=== PATIENT | female | born 1960 | race Caucasian/White ===

== ENCOUNTER 2017-01-04 07:50 | Day surgery (SDC) | payer OTHER ==
[~2017-01-04] VITALS: Ht 160 cm; Wt 58.5 kg
[~2017-01-04 07:50] MED LIST: ACET325T26 PO; ADVIL PO; ASCO-96 PO; ATOR40TA78 PO; BUPIVACAINE/PF 0.5% ONE; CALC-112 PO; HEPARIN 1,000 UNITS/ML, 10ML ONE; HYDR-3138 PO; IBUP200C PO; L GA1CAP PO; LACT1CAP35 PO; LORA0.5T PO; LORA10CA PO; MELA1TAB6 PO; MULT-717 PO; ONDA4TAB10 PO; ONDA4TAB13 SL; PANT40TA5 PO; PROTAMINE SULFATE 10 MG/ML, 5ML ONE; SUDAFED PO; THROMBIN 5,000 UNIT VIAL TP ONE; TYLENOL PO; UBID100C24 PO
[2017-01-04] MEDS ORDERED: SODIUM CHLORIDE 0.9% 1,000 ML IV SCH (09:22)
[2017-01-04 09:42] VITALS: BP 138/76
[2017-01-04] MEDS ORDERED: PANT40TA5 PO (09:53)
[2017-01-04] MEDS ORDERED: ACYC-114 PO (09:53)
[2017-01-04] MEDS ORDERED: FENTANYL PF 250 MCG/5ML ONE (10:18)
[2017-01-04] MEDS ORDERED: MIDAZOLAM 1 MG/ML, 2ML ONE (10:18)
[2017-01-04] MEDS ORDERED: PROPOFOL 10 MG/ML, 20ML ONE (10:49)
[2017-01-04] MEDS ORDERED: DEXAMETHASONE 4 MG/ML, 1ML ONE (10:49)
[2017-01-04] MEDS ORDERED: CEFAZOLIN 1,000 MG ONE (10:49)
[2017-01-04] MEDS ORDERED: ONDANSETRON 2MG/ML, 2ML ONE (10:49)
[2017-01-04] MEDS ORDERED: ONDANSETRON 2MG/ML, 2ML IVPush PRN (11:30)
[2017-01-04] MEDS ORDERED: hydrALAzine 20 MG/ML, 1ML IV PRN (11:30)
[2017-01-04] MEDS ORDERED: LABETALOL 5MG/ML, 20ML IV PRN (11:30)
[2017-01-04] MEDS ORDERED: EPHEDRINE 50 MG/ML, 1ML IVPush PRN (11:30)
[2017-01-04] MEDS ORDERED: HYDROmorphone 1 MG/ML, 1ML IV PRN (11:30)
[2017-01-04] MEDS ORDERED: METOPROLOL 1 MG/ML, 5ML IV PRN (11:30)
[2017-01-04] MEDS ORDERED: ALBUTEROL SULFATE 2.5 MG/3 ML NPPB PRN (11:30)
[2017-01-04] MEDS ORDERED: OXYcodone 5 MG/5 ML ORAL.SOL UDC PO PRN (11:30)
[2017-01-04] MEDS ORDERED: ACETAMINOPHEN 325 MG TABLET PO PRN (11:30)
[2017-01-04] MEDS ORDERED: FENTANYL PF 100 MCG/2ML IV PRN (11:30)
[2017-01-04] MEDS ORDERED: ACETAMINOPHEN 650 MG/20.3 ML UDC ONE (12:10)
[2017-01-04] MEDS ORDERED: OXYcodone 5 MG/5 ML ORAL.SOL UDC ONE (12:11)
== END 2017-01-04 15:30 | disposition home or self-care (01) ==
LOC: OUT 07:50
PROVIDERS: ATTEND Surgery Vascular Surgery
DX: N18.6 End stage renal disease (principal); K21.9 Gastro-esophageal reflux disease without esophagitis; Z85.79 Personal history of other malignant neoplasms of lymphoid, hematopoietic and related tissues; Z99.2 Dependence on renal dialysis; E78.00 Pure hypercholesterolemia, unspecified; Z72.89 Other problems related to lifestyle; D64.9 Anemia, unspecified; Z90.710 Acquired absence of both cervix and uterus
CPT/HCPCS: 36415; 36821; 80047; J0690; J1100; J1644; J2250; J2405; J2704; J2720; J3010; J3490; J7030

== ENCOUNTER 2017-04-08 15:52 | Emergency (ER) | payer OTHER ==
[~2017-04-08] VITALS: Ht 160 cm; Wt 59.6 kg
[~2017-04-08 15:52] MED LIST changes: +ACYC-114 PO; -BUPIVACAINE/PF 0.5% ONE; -HEPARIN 1,000 UNITS/ML, 10ML ONE; -PROTAMINE SULFATE 10 MG/ML, 5ML ONE; -THROMBIN 5,000 UNIT VIAL TP ONE
[2017-04-08] MEDS ORDERED: MIDAZOLAM 1 MG/ML, 5ML ONE (16:04)
[2017-04-08] MEDS ORDERED: MORPHINE SULFATE 4 MG/ML, 1ML ONE (16:04)
[2017-04-08] MEDS ORDERED: ONDANSETRON 2MG/ML, 2ML ONE ×2 (16:04→18:29)
[2017-04-08] MEDS ORDERED: SODIUM CHLORIDE 0.9% 1,000 ML IV ONE (16:08)
[2017-04-08] MEDS ORDERED: PLEASE ENTER ALLERGIES MC SCH ×2 (16:30)
[2017-04-08] MEDS ORDERED: SODIUM CHLORIDE 0.9%, 500ML IVBOLUS ONE ×2 (16:30→17:30)
[2017-04-08] MEDS ORDERED: SODI650T PO (16:55)
[2017-04-08] MEDS ORDERED: ATOR40TA PO (16:55)
[2017-04-08] MEDS ORDERED: LENA5CAP PO (16:56)
[2017-04-08] MEDS ORDERED: DEXA4TAB PO (16:56)
[2017-04-08] MEDS ORDERED: [UNRECOGNIZED DRUG - CODE] IV (16:56)
[2017-04-08 17:04] LABS: ASPARTATE AMINO TRANSFERASE 12 U/L (15-37); BLOOD UREA NITROGEN 23 mg/dL (7-18)
[2017-04-08 17:12] LABS: ANISOCYTOSIS 1+; HYPOCHROMIA 1+; POLYCHROMASIA 1+
[2017-04-08] MEDS ORDERED: ONDANSETRON 2MG/ML, 2ML IVPush ONE (18:30)
[2017-04-08 19:51] LABS: PATH.CAST-FLAG NOT PRESENT; SPERM-FLAG NOT PRESENT; SRC-FLAG NOT PRESENT; XTAL-FLAG NOT PRESENT; YLC-FLAG NOT PRESENT
[2017-04-08 20:12] VITALS: BP 128/67
== END 2017-04-08 21:31 | disposition home or self-care (01) ==
LOC: ED 19:48
DX: R55 Syncope and collapse (principal); E86.0 Dehydration; N18.9 Chronic kidney disease, unspecified; E87.5 Hyperkalemia; R11.0 Nausea; Z99.2 Dependence on renal dialysis
CPT/HCPCS: 36415; 71010; 80053; 81001; 83605; 84145; 85025; 87040; 93005; 96360; 99285; J7040

== ENCOUNTER → 2017-04-22 | Outpatient (CLI) | payer OTHER ==
[~2017-04-22] MED LIST changes: +ATOR40TA PO; +DEXA4TAB PO; +LENA5CAP PO; +SODI650T PO; +[UNRECOGNIZED DRUG - CODE] IV
== END | disposition home or self-care (01) ==
LOC: CFH 16:03
PROVIDERS: ATTEND Specialist
DX: R22.31 Localized swelling, mass and lump, right upper limb (principal); C90.00 Multiple myeloma not having achieved remission

== ENCOUNTER 2017-08-31 16:43 | Inpatient (IN) | payer OTHER ==
[~2017-08-31] VITALS: Ht 160 cm; Wt 54.0 kg
[2017-08-31] VITALS (7 sets, daily range): BP systolic 105–124; BP diastolic 48–82
[~2017-08-31 16:43] MED LIST changes: -HYDR-3138 PO; +HYDR-3237 PO; -IBUP200C PO; +IBUP200C5 PO
[2017-08-31] MEDS ORDERED: SODIUM CHLORIDE FLUSH 10ML SYR IVF ONE (17:00)
[2017-08-31 18:07] LABS: WHITE BLOOD COUNT 9.8 x10^3/uL (3.4-10)
[2017-08-31 18:09] LABS: HEMOGLOBIN 5.2 g/dL (11.7-16.4)
[2017-08-31 18:10] LABS: HEMATOCRIT 15.4 % (34.6-47.8)
[2017-08-31 18:14] LABS: BLOOD UREA NITROGEN 17 mg/dL (7-18)
[2017-08-31 18:15] LABS: IS PT STATUS REG ER OR PRE ER? YES
[2017-08-31 18:41] LABS: FERRITIN 2782.1 ng/mL (8-252); LACTATE DEHYDROGENASE 301 U/L (84-246)
[2017-08-31 19:44] LABS: DIFF TOTAL CELLS COUNTED 100 CELL DIFF
[2017-08-31 19:51] LABS: VERIFY COUNTS? YES
[2017-08-31 19:53] LABS: POLYCHROMASIA 1+
[2017-08-31 19:54] LABS: ANISOCYTOSIS 1+
[2017-08-31 19:55] LABS: ROULEAUX 1+
[2017-08-31 19:56] LABS: POIKILOCYTOSIS 1+
[2017-08-31] MEDS ORDERED: LORazepam 0.5MG TABLET PO SCH (21:30)
[2017-08-31] MEDS ORDERED: hydrALAzine 20 MG/ML, 1ML IVPush PRN (21:30)
[2017-08-31] MEDS ORDERED: DOCUSATE 100 MG CAPSULE PO PRN (21:30)
[2017-08-31] MEDS ORDERED: ACETAMINOPHEN 325 MG TABLET PO PRN (21:30)
[2017-08-31] MEDS ORDERED: DEXAMETHASONE 4 MG TABLET PO SCH (21:30)
[2017-08-31] MEDS ORDERED: ONDANSETRON ODT 4 MG PO PRN (21:30)
[2017-08-31] MEDS: SODIUM BICARBONATE 650 MG TABLET PO SCH (21:30)
[2017-08-31] MEDS ORDERED: LENALIDOMIDE 5 MG PO SCH (21:30)
[2017-08-31] MEDS ORDERED: DAPSONE 100 MG TABLET PO SCH (23:00)
[2017-08-31] MEDS ORDERED: DECADRON MC SCH (23:30)
[2017-09-01] VITALS (9 sets, daily range): BP systolic 119–139; BP diastolic 73–90
[2017-09-01] MEDS ORDERED: FUROSEMIDE 20 MG/2 ML IV ONE
[2017-09-01] MEDS ORDERED: CHOL200024 PO (00:18)
[2017-09-01] MEDS: ATORVASTATIN 40 MG TABLET PO SCH ×2 (00:28→20:08)
[2017-09-01 01:00] LABS: IS PT STATUS REG ER OR PRE ER? NO
[2017-09-01 04:24] LABS: HEMATOCRIT 28.7 % (34.6-47.8); HEMOGLOBIN 9.6 g/dL (11.7-16.4); WHITE BLOOD COUNT 9.5 x10^3/uL (3.4-10)
[2017-09-01 04:28] LABS: BLOOD UREA NITROGEN 22 mg/dL (7-18)
[2017-09-01 07:05] LABS: IS PT STATUS REG ER OR PRE ER? NO
[2017-09-01] MEDS: ACYCLOVIR 400 MG TABLET PO SCH (08:12)
[2017-09-01] MEDS: ASCORBIC ACID 500 MG TABLET PO SCH (08:13)
[2017-09-01] MEDS: PANTOPROZOLE 40MG TABLET PO SCH (08:13)
[2017-09-01] MEDS: SODIUM BICARBONATE 650 MG TABLET PO SCH ×2 (08:54→20:08)
[2017-09-01] MEDS ORDERED: METRONIDAZOLE PMX 500MG/100ML 100 ML IV SCH (10:00)
[2017-09-01] MEDS ORDERED: VANCOMYCIN PER PHARMACY MC PRN (12:00)
[2017-09-01] MEDS ORDERED: VANCOMYCIN 50 MG/ML ORAL SUSP PO SCH (12:00)
[2017-09-01] MEDS: DAPSONE 100 MG TABLET PO SCH (20:09)
[2017-09-02 03:30] VITALS: BP 140/80
[2017-09-02] MEDS: PANTOPROZOLE 40MG TABLET PO SCH (07:36)
[2017-09-02] MEDS: ACYCLOVIR 400 MG TABLET PO SCH (07:36)
[2017-09-02] MEDS: ASCORBIC ACID 500 MG TABLET PO SCH (07:36)
[2017-09-02] MEDS: SODIUM BICARBONATE 650 MG TABLET PO SCH ×2 (07:36→19:55)
[2017-09-02 08:50] VITALS: BP 128/81
[2017-09-02 08:51] LABS: HEMATOCRIT 29.3 % (34.6-47.8); WHITE BLOOD COUNT 9.1 x10^3/uL (3.4-10)
[2017-09-02 09:03] LABS: BLOOD UREA NITROGEN 34 mg/dL (7-18)
[2017-09-02] MEDS ORDERED: EPOETIN 40,000 UNITS/ML SQ SCH (11:00)
[2017-09-02 11:12] LABS: HEP B SURF. AB 6.6 mIU/mL (0.0-10.0)
[2017-09-02] MEDS ORDERED: ARANESP 100 MCG/ML **ESRD SQ SCH (11:30)
[2017-09-02 16:05] VITALS: BP 118/78
[2017-09-02 19:16] VITALS: BP 120/73
[2017-09-02] MEDS: ATORVASTATIN 40 MG TABLET PO SCH (19:55)
[2017-09-02] MEDS: DAPSONE 100 MG TABLET PO SCH (19:55)
[2017-09-03 01:44] VITALS: BP 122/76
[2017-09-03 07:07] VITALS: BP 135/81
[2017-09-03] MEDS: SODIUM BICARBONATE 650 MG TABLET PO SCH (08:29)
[2017-09-03] MEDS: ACYCLOVIR 400 MG TABLET PO SCH (08:29)
[2017-09-03] MEDS: PANTOPROZOLE 40MG TABLET PO SCH (08:29)
[2017-09-03] MEDS: ASCORBIC ACID 500 MG TABLET PO SCH (08:29)
[2017-09-03 08:37] LABS: BLOOD UREA NITROGEN 19 mg/dL (7-18)
[2017-09-03 08:50] LABS: HEMATOCRIT 35.6 % (34.6-47.8); HEMOGLOBIN 12.1 g/dL (11.7-16.4); WHITE BLOOD COUNT 9.5 x10^3/uL (3.4-10)
[2017-09-03] MEDS ORDERED: PRED10TA PO (09:20)
[2017-09-03 13:06] LABS: PARVOVIRUS B19 IGG 3.3 index (0.0-0.8); PARVOVIRUS B19 IGM 0.1 index (0.0-0.8)
== END 2017-09-03 13:01 | disposition home or self-care (01) | DRG 808 ==
LOC: ED 19:34 → EDIP 21:20 → 3NE 22:50 → 3NW 09-01 15:35
PROVIDERS: ADMIT Hospitalist; ATTEND Hospitalist
PROC: 30233N1 Transfusion of Nonautologous Red Blood Cells into Peripheral Vein, Percutaneous Approach (ICD-10-PCS; principal; 2017-08-31)
PROC: 5A1D70Z Performance of Urinary Filtration, Intermittent, Less than 6 Hours Per Day (ICD-10-PCS; 2017-09-02)
DX: D61.9 Aplastic anemia, unspecified (principal); E43 Unspecified severe protein-calorie malnutrition; C90.00 Multiple myeloma not having achieved remission; Z94.81 Bone marrow transplant status; Z94.84 Stem cells transplant status; I12.0 Hypertensive chronic kidney disease with stage 5 chronic kidney disease or end stage renal disease; Q93.9 Deletion from autosomes, unspecified; N18.6 End stage renal disease; D70.9 Neutropenia, unspecified; D63.8 Anemia in other chronic diseases classified elsewhere; Z68.21 Body mass index [BMI] 21.0-21.9, adult; E78.5 Hyperlipidemia, unspecified; N25.0 Renal osteodystrophy; R50.81 Fever presenting with conditions classified elsewhere; Z82.49 Family history of ischemic heart disease and other diseases of the circulatory system; Z90.710 Acquired absence of both cervix and uterus; Z99.2 Dependence on renal dialysis; Z90.49 Acquired absence of other specified parts of digestive tract
CPT/HCPCS: 36415; 36430; 71010; 80048; 82040; 82607; 82728; 82746; 83010; 83615; 83880; 84484; 85025; 85045; 85610; 86160; 86704; 86706; 86747; 86850; 86880; 86900; 86923; 87324; 87340; 93005; J0882; J3370; Q0162; J1940; J7512; P9040